=== PATIENT | male | born 1970 | race American Indian/Alaskan Native ===

== ENCOUNTER 2019-09-18 11:33 | Emergency (ER) | payer SELFPAY ==
[2019-09-18 11:38] VITALS: BP 123/87
[2019-09-18] MEDS ORDERED: methylPREDNISolone Sod Succinate 125 MG/2 ML INJ IV ONE (11:47)
--- NOTE | 2019-09-18 11:47 | Event Note ---
ED Screening Note ED Screening Note: CIG NO ETOH THC PSH NONE PMH NONE NO DAILY MEDS ORAL SWELLING AND THROAT FEELS TIGHT HAPPENED 2 W AGO AND WENT TO [place] [facility]- FOR SAME; WAS GIVEN STEROIDS 4-5 DAYS AGO This initial assessment/diagnostic orders/clinical plan/treatment(s) is/are subject to change based on patients health status, clinical progression and re- assessment by fellow clinical providers in the ED. Further treatment and workup at subsequent clinical providers discretion. Patient/guardian urged not to elope from the ED as their condition may be serious if not clinically assessed and managed. Initial orders include: RO ANGIOEDEMA
[2019-09-18] MEDS ORDERED: diphenhydrAMINE 50 MG/ML VIAL IV ONE (11:48)
[2019-09-18] MEDS ORDERED: SODIUM CHLORIDE 0.9% 1000 ML 1,000 ML IV ONE (11:48)
[2019-09-18] MEDS ORDERED: FAMOTIDINE 20 MG/2 ML INJ IV ONE (11:48)
[2019-09-18] MEDS ORDERED: ALBUTEROL 2.5 MG/3 ML NEBU IH ONE (12:06)
--- NOTE | 2019-09-18 12:58 | Emergency Department Report ---
<JOSEE POLANCO - Last Filed: 09/18/19 13:14> ED General Adult HPI - General Chief complaint: Allergic Reaction Stated complaint: ALLERGIC REACTION Time Seen by Provider: 09/18/19 11:44 - Related Data Previous Rx's Medication Instructions Recorded Last Taken Type Famotidine [Pepcid] 20 mg PO BID #10 tablet 09/18/19 Unknown Rx predniSONE [Deltasone] 60 mg PO QDAY 5 Days #15 tab 09/18/19 Unknown Rx Allergies Allergy/AdvReac Type Severity Reaction Status Date / Time acetaminophen [From Tylenol] Allergy Swelling Verified 09/18/19 12:10 ED Past Medical Hx - Medications Home Medications: Home Medications Medication Instructions Recorded Confirmed Last Taken Type Famotidine [Pepcid] 20 mg PO BID #10 tablet 09/18/19 Unknown Rx predniSONE [Deltasone] 60 mg PO QDAY 5 Days #15 tab 09/18/19 Unknown Rx ED Course - Reevaluation(s) Reevaluation #1: 09/18/19 13:14 Patient examined by me. No airway compromise. Patient is currently denying any difficulty swallowing or difficulty breathing. Patient swelling is localized to the right cheek. Patient stated that he had multiple episode like this last one was 2 weeks ago in [place]. Patient never been intubated before. Patient is a stable for discharge. ED Disposition Clinical Impression: Allergic reaction, Angioedema Disposition: DC-01 TO HOME OR SELFCARE Condition: Stable Instructions: Angioedema (ED) Additional Instructions: Take medications as prescribed. Continue benadryl. I recommend you follow up with PCP and another electric meter installer helper when you return to [place] tuesday. Return to ED if worse. Prescriptions: predniSONE [Deltasone] 60 mg PO QDAY 5 Days #15 tab Famotidine [Pepcid] 20 mg PO BID #10 tablet Referrals: PRIMARY CARE, [Primary Care Provider] - 3-5 Days <JARED CASTRO. - Last Filed: 09/18/19 13:21> ED General Adult HPI - General Source: patient, family Mode of arrival: Ambulatory Limitations: No Limitations - History of Present Illness Initial comments: 49-year-old male presents to the ER today complaint of right facial swelling. Patient reports that he woke up this morning with the right side of his face swollen mainly around his right cheek and right lips. Patient states that he has had this type of reaction recurrently in the past. It was thought to be related to allergic reaction. He states that he did see an electric meter installer helper about 2 months ago while in [place], who did allergy testing but could not find a cause. Patient states that he had a flareup about 2 weeks ago while he was in [place], he states that he was given steroids and an IV, and was discharged home on steroids. He states that he did get better after taking the steroids. He denies any obvious new contacts or new medications. He states that when the swelling started this morning he noticed that his throat felt tight. He denied any tongue swelling, chest pain, wheezing or difficulty breathing. He reports no rash to the rest of his body. He reports no pain. He reports no other symptoms at this time. MD Complaint: Allergic reaction; Right facial swelling -: Sudden (last night) Location: face ED Review of Systems ROS: Stated complaint: ALLERGIC REACTION Other details as noted in HPI Constitutional: denies: chills, diaphoresis, fever, weakness Eyes: other (Right facial swelling). denies: eye pain, eye discharge, vision change ENT: denies: ear pain, throat pain, dental pain, congestion Respiratory: denies: cough, shortness of breath, wheezing Cardiovascular: denies: chest pain, palpitations Gastrointestinal: denies: abdominal pain, nausea, diarrhea Genitourinary: denies: urgency, dysuria Skin: other (Right facial swelling). denies: rash Neurological: denies: headache, weakness, paresthesias Psychiatric: denies: anxiety, depression Hematological/Lymphatic: denies: easy bleeding, easy bruising ED Past Medical Hx - Past Medical History Previous Medical History?: Yes Additional medical history: chronic back pain - Surgical History Past Surgical History?: Yes Additional Surgical History: MRI of the lumbar spine 6 years ago - Social History Smoking Status: Current Every Day Smoker Substance Use Type: None ED Physical Exam - General Limitations: No Limitations General appearance: alert, in no apparent distress - Head Head exam: Present: atraumatic, normocephalic, normal inspection - Eye Eye exam: Present: normal appearance, PERRL, EOMI Pupils: Present: normal accommodation - ENT ENT exam: Present: normal exam, normal orophraynx, mucous membranes moist, other (There is mild swelling noted to right cheek, and right corner of lips. There is erythema around nose and lips and cheeks but patient is also wearing face mask for breathing treatment. No apparent rash, or urticaria. No tongue swelling, throat swelling, dental pain or tenderness noted. ) - Neck Neck exam: Present: normal inspection, full ROM - Respiratory Respiratory exam: Present: normal lung sounds bilaterally. Absent: respiratory distress, wheezes, rales, rhonchi - Cardiovascular Cardiovascular Exam: Present: regular rate, normal rhythm, normal heart sounds - Neurological Exam Neurological exam: Present: alert, oriented X3 - Psychiatric Psychiatric exam: Present: normal affect, normal mood - Skin Skin exam: Present: intact ED Course Vital Signs 09/18/19 09/18/19 09/18/19 11:34 12:23 12:37 Temperature 97.4 F L Pulse Rate 72 Pulse Rate [ 57 L Bilateral] Respiratory 18 17 Rate Respiratory 16 Rate [Bilateral ] Blood Pressure 123/87 O2 Sat by Pulse 97 Oximetry Critical care attestation.: If time is entered above; I have spent that time in minutes in the direct care of this critically ill patient, excluding procedure time. ED Disposition Is pt being admited?: No Does the pt Need Aspirin: No Time of Disposition: 13:20
== END 2019-09-18 13:34 | disposition home or self-care (01) ==
LOC: ED 11:33
DX: T78.3XXA Angioneurotic edema, initial encounter (principal); T78.40XA Allergy, unspecified, initial encounter; F17.200 Nicotine dependence, unspecified, uncomplicated; Z88.8 Allergy status to other drugs, medicaments and biological substances; Z79.899 Other long term (current) drug therapy; X58.XXXA Exposure to other specified factors, initial encounter
CPT/HCPCS: 94640; 96374; 96375; 99283; J1200; J2930; J7030; 94644